=== PATIENT | male | born 1970 | race Caucasian/White ===

== ENCOUNTER 2021-10-30 10:43 | Outpatient (CLI) | payer BC, SELFPAY ==
--- NOTE | 2021-10-30 10:58 | XRR_ITS ---
PROCEDURE INFORMATION: Exam: XR Left Knee Exam date and time: 10/30/2021 11:00 AM Age: 51 years old Clinical indication: Left; Patient HX: Lt knee pain. Hurt playing volleyball a couple months ago. Along the patella on lt side. Swelling in that area as well. ; Additional info: L knee pain TECHNIQUE: Imaging protocol: Radiologic exam of the Left knee. Views: 4 or more views. COMPARISON: No relevant prior studies available. FINDINGS: Bones/joints: Normal. Soft tissues: Normal. XR/XR knee LT 4V [id number] IMPRESSION: No acute findings.
== END 2021-10-30 10:44 | disposition home or self-care (01) ==
PROVIDERS: PCP Nurse Practitioner Family; Visit Provider Nurse Practitioner Family
DX: M25.562 Pain in left knee (principal)
CPT/HCPCS: 73564